=== PATIENT | male | born 1995 | race Caucasian/White ===

== ENCOUNTER 2023-03-24 12:11 | Emergency (ER) | payer OTHER ==
[~2023-03-24] VITALS: Ht 170.2 cm; Wt 63.5 kg
[2023-03-24 12:19] VITALS: BP 126/83; PULSE 99; RESP 20; TEMP 98; O2SAT 99
--- NOTE | 2023-03-24 12:26 | NUR ---
PT AMBULATED TO BED 5
[2023-03-24] MEDS ORDERED: IBUPROFEN 400 MG TAB PO ONE (12:45)
--- NOTE | 2023-03-24 12:53 | NUR ---
blood drawn. walked to lab
[2023-03-24 13:07] LABS: ANION GAP 12.1 (8-16); POTASSIUM 4.1 mmol/L (3.5-5.1)
[2023-03-24 13:10] LABS: BASOPHILS # (AUTO) 0.1 K/uL (0.00-0.22); BASOPHILS % (AUTO) 1.2 % (0.0-2.0); EOSINOPHILS # (AUTO) 0.2 K/uL (0-0.4); EOSINOPHILS % (AUTO) 2.9 % (0.0-4.0); HEMATOCRIT 53.2 % (36-52); HEMOGLOBIN 17.9 g/dL (12.0-18.0); LYMPHOCYTES % (AUTO) 22.8 % (20.5-51.1); MEAN CORPUSCULAR HEMOGLOBIN 31 pg (27-31); MEAN CORPUSCULAR HGB CONC 34 g/dL (33-37); MEAN CORPUSCULAR VOLUME 92.5 fL (80-94); MONOCYTES # (AUTO) 0.8 K/uL (0.8-1.0); MONOCYTES % (AUTO) 9.1 % (1.7-9.3); NEUTROPHILS # (AUTO) 5.5 K/uL (1.8-7.7); PLATELET COUNT (AUTO) 209 K/uL (140-450); RED BLOOD CELL COUNT(AUTO) 5.75 MIL/uL (4.20-6.10); RED CELL DISTRIBUTION WIDTH 13.4 % (11.6-13.7); WHITE BLOOD COUNT (AUTO) 8.5 K/uL (4.8-10.8)
--- NOTE | 2023-03-24 13:29 | NUR ---
27YO M PRESENTS W/RT UNDERARM/CHEST WALL PAIN X 1WK, SOB W/INSPERATION. PT STATES MOTHER OF CANCER AND WORRIED IT SOMETHING IS WRONG. DENIES N,V,D, FEVER, CHILLS, FLU SYMPTOMS, URINARY SYMPTOMS, HERRERA. VS; BP120/78, P66, RR13, O2-96% RA. NAD NOTED, SAFETY MAINTAINED, CALL LIGHT IN REACH. HX: DENIES NKA
[2023-03-24 14:07] VITALS: BP 114/67; PULSE 74; RESP 17; O2SAT 98
--- NOTE | 2023-03-24 14:09 | NUR ---
Patient discharged with v/s stable. Written and verbal after care instructions given and explained. Patient verbalized understanding. Ambulatory with steady gait. All questions addressed prior to discharge. Advised to follow up with PMD.
== END 2023-03-24 14:09 | disposition home or self-care (01) ==
LOC: MED 12:11
DX: R07.89 Other chest pain (principal)
CPT/HCPCS: 36415; 71045; 80048; 84484; 85025; 93005; 99285